=== PATIENT | male | born 1950 | race Caucasian/White ===

== ENCOUNTER 2022-07-25 08:42 | Observation (INO) | payer MEDICARE ==
[2022-07-19 15:40] LABS: BASOPHILS % (AUTO) 0.3 % (0.0-5.0); HEMATOCRIT 41.3 % (42-54); LYMPHOCYTES % (AUTO) 21.4 % (21.0-51.0); MEAN CORPUSCULAR HEMOGLOBIN 32.6 pg (27.0-33.0); MEAN CORPUSCULAR HGB CONC 33.7 g/dL (32.0-36.0); MEAN CORPUSCULAR VOLUME 96.7 fL (79-99); MONOCYTES % (AUTO) 13.4 % (3.0-13.0); NEUTROPHILS % (AUTO) 61.6 % (40.0-77.0); PLATELET COUNT (AUTO) 110 K/uL (130-400); RED BLOOD CELL COUNT(AUTO) 4.27 MIL/uL (4.50-6.20); RED CELL DISTRIBUTION WIDTH 12.7 % (11.0-15.5)
[2022-07-19 15:49] LABS: CREATININE 0.8 mg/dL (0.5-1.5); POTASSIUM 3.7 mmol/L (3.5-5.1)
[2022-07-19 15:52] LABS: INR 1.03 (0.85-1.15); PROTHROMBIN TIME 11.2 SEC (9.6-11.6)
[2022-07-19 15:54] LABS: PARTIAL THROMBOPLASTIN TIME 29.3 SEC (26.3-35.5)
[2022-07-19 16:10] LABS: BASOPHILS % (MANUAL) 1 % (0-2); EOSINOPHILS % (MANUAL) 1 % (1-6); LYMPHOCYTES % (MANUAL) 19 % (22-44); MAN.DIFF COMMENT-IMPRESSION MANUAL DIFFERENTIAL; MONOCYTES % (MANUAL) 6 % (2-9); REACTIVE LYMPHOCYTES 5 % (0-0); SEGMENTED NEUTROPHILS % 68 % (40-70)
[2022-07-24 11:58] VITALS: BP 140/73
[~2022-07-25] VITALS: Ht 182.9 cm; Wt 83.5 kg
[2022-07-25] VITALS (24 sets, daily range): BP systolic 132–158; BP diastolic 62–89
[2022-07-25] MEDS: CEFAZOLIN SODIUM 1 GM VIAL IVP SCH ×3 (06:00→21:14)
[~2022-07-25 08:42] MED LIST: ALBU90AE2 IH; CYCL-309 PO; FLUO20CA36 PO; FLUT1BLS11 IH; HYDR12.54 PO; LACTATED RINGERS 1000ML 1,000 ML IV SCH; MV,M1TAB4 PO; OMEP20TA20 PO; POTA-202 PO; TAMS-1 PO; TERA10CA4 PO; TRAM50TA4 PO; TRANEXAMIC ACID 1000MG/10ML IJ SCH
[2022-07-25] MEDS ORDERED: DIPH-706 PO (09:41)
[2022-07-25] MEDS ORDERED: HYLAND LEG CRAMPS (09:41)
[2022-07-25] MEDS ORDERED: MONT-39 PO (09:41)
[2022-07-25] MEDS ORDERED: ROPIVACAINE 0.5% 5MG/ML 30ML IJ ONE (12:51)
[2022-07-25] MEDS ORDERED: TRANEXAMIC ACID 1000MG/10ML ONE (13:12)
[2022-07-25] MEDS ORDERED: MORPHINE 4 MG SYG IVP PRN (14:30)
[2022-07-25] MEDS ORDERED: ONDANSETRON 4MG INJ IVP PRN (14:30)
[2022-07-25] MEDS ORDERED: LIDOCAINE HCL-MPF 1% 2ML VIAL IV PRN (14:30)
[2022-07-25] MEDS ORDERED: POTASSIUM CHLORIDE 10% ELIXIR 20 MEQ/15 ML UDCUP PO PRN (14:30)
[2022-07-25] MEDS ORDERED: POTASSIUM CHLORIDE 20MEQ/100ML 100 ML IV PRN (14:30)
[2022-07-25] MEDS ORDERED: CYCLOBENZAPRINE HCL 10 MG TABLET PO PRN (14:30)
[2022-07-25] MEDS ORDERED: KCL 20 MEQ ERTAB PO PRN (14:30)
[2022-07-25] MEDS ORDERED: ALBUTEROL INHALER 90MCG/INH IH PRN (14:30)
[2022-07-25] MEDS: ACETAMINOPHEN 500 MG TABLET PO SCH ×2 (14:30→21:13)
[2022-07-25] MEDS ORDERED: 0.9%NACL 1000ML 1,000 ML IV SCH (14:30)
[2022-07-25] MEDS ORDERED: MIDAZOLAM HCL 1 MG/ML 2ML VIAL ONE (14:39)
[2022-07-25] MEDS ORDERED: FENTANYL CITRATE PF 50 MCG/1 ML 2ML VIAL ONE ×2 (14:41→17:40)
[2022-07-25] MEDS ORDERED: ONDANSETRON 4MG INJ ONE (14:46)
[2022-07-25] MEDS ORDERED: PROPOFOL 10 MG/ML 20ML VIAL IV ONE ×2 (14:48→15:29)
[2022-07-25] MEDS ORDERED: ROCURONIUM 10MG/1ML SYR 10 MG/ML ML ONE ×2 (14:48→15:59)
[2022-07-25] MEDS ORDERED: DEXAMETHASONE SOD PHOSPHATE 10MG/ML 1ML VIAL ONE (15:00)
[2022-07-25] MEDS ORDERED: EPHEDRINE SULFATE 50 MG/ML AMPULE ONE (15:57)
[2022-07-25] MEDS ORDERED: GLYCOPYRROLATE 1 MG/5 ML SYRINGE ONE (17:23)
[2022-07-25] MEDS ORDERED: NEOSTIGMINE 5MG/5ML SYR IV ONE (17:23)
[2022-07-25] MEDS ORDERED: MEPERIDINE-PF 25 MG/ML SYG ONE (18:04)
[2022-07-25] MEDS ORDERED: FLUOXETINE HCL 20 MG CAPSULE PO SCH (21:00)
[2022-07-25] MEDS: FLUTICASONE/VILANTEROL 1 EACH AER.POW.BA IH SCH (21:00)
[2022-07-25] MEDS ORDERED: PANTOPRAZOLE 40 MG TAB DR PO SCH (21:00)
[2022-07-25] MEDS ORDERED: TAMSULOSIN HCL 0.4 MG CAP.ER.24H PO SCH (21:00)
[2022-07-25] MEDS ORDERED: TERAZOSIN 5MG CAP PO SCH (21:00)
[2022-07-25] MEDS ORDERED: MONTELUKAST SODIUM 10 MG TAB PO SCH (21:00)
[2022-07-25] MEDS: TRAMADOL HCL 50 MG TABLET PO SCH (21:11)
[2022-07-25] MEDS: ASPIRIN 81 MG EC TAB PO SCH (21:12)
[2022-07-25] MEDS: FAMOTIDINE 20MG TAB PO SCH (22:15)
[2022-07-25] MEDS: OXYCODONE HCL 5 MG TAB PO PRN (23:30)
[2022-07-26] MEDS: HYDROCODONE/ACETAMINOPHEN 5/325 MG TAB PO PRN ×2 (02:30→15:40)
[2022-07-26 04:47] VITALS: BP 146/78
[2022-07-26 05:01] LABS: HEMATOCRIT 41.6 % (42-54); MEAN CORPUSCULAR HEMOGLOBIN 32.1 pg (27.0-33.0); MEAN CORPUSCULAR HGB CONC 32.2 g/dL (32.0-36.0); MEAN CORPUSCULAR VOLUME 99.8 fL (79-99); RED BLOOD CELL COUNT(AUTO) 4.17 MIL/uL (4.50-6.20); RED CELL DISTRIBUTION WIDTH 12.5 % (11.0-15.5); WHITE BLOOD COUNT (AUTO) 8.1 K/uL (4.8-10.8)
[2022-07-26 05:13] LABS: CREATININE 0.8 mg/dL (0.5-1.5)
[2022-07-26] MEDS ORDERED: CEFAZOLIN SODIUM 1 GM VIAL ONE (05:29)
[2022-07-26] MEDS: CEFAZOLIN SODIUM 1 GM VIAL IVP SCH (05:46)
[2022-07-26] MEDS: TRAMADOL HCL 50 MG TABLET PO SCH ×4 (05:47→17:28)
[2022-07-26] MEDS: ACETAMINOPHEN 500 MG TABLET PO SCH ×2 (05:47→14:30)
[2022-07-26 08:00] VITALS: BP 118/63
[2022-07-26] MEDS: OXYCODONE HCL 5 MG TAB PO PRN (08:34)
[2022-07-26] MEDS: FAMOTIDINE 20MG TAB PO SCH (08:35)
[2022-07-26] MEDS: FLUTICASONE/VILANTEROL 1 EACH AER.POW.BA IH SCH (08:35)
[2022-07-26] MEDS: ASPIRIN 81 MG EC TAB PO SCH (08:35)
[2022-07-26] MEDS ORDERED: KCL 20 MEQ ERTAB PO SCH (09:00)
[2022-07-26] MEDS ORDERED: HYDROCHLOROTHIAZIDE 25 MG TABLET PO SCH (09:00)
[2022-07-26] MEDS ORDERED: POLYETHYLENE GLYCOL 3350 17 GM POWD.PACK PO SCH (09:00)
[2022-07-26 12:00] VITALS: BP 102/56
[2022-07-26 16:52] VITALS: BP 102/58
[2022-07-28] MEDS ORDERED: BISACODYL 10 MG SUPP.RECT RC PRN (14:30)
== END 2022-07-26 19:30 | disposition home or self-care (01) ==
LOC: DAH 08:42 → DAHIP 08:43 → DAH 08:43 → 4CH 19:15
PROVIDERS: ADMIT Orthopaedic Surgery; ATTEND Orthopaedic Surgery
DX: M19.011 Primary osteoarthritis, right shoulder (principal); Z20.822 Contact with and (suspected) exposure to COVID-19; M75.101 Unspecified rotator cuff tear or rupture of right shoulder, not specified as traumatic; M24.511 Contracture, right shoulder; I10 Essential (primary) hypertension; J45.909 Unspecified asthma, uncomplicated; Z79.899 Other long term (current) drug therapy
CPT/HCPCS: 80048 ×2; 85025; 85610; 85730; 87426; 36415 ×2; 23472; 96374; 96375 ×2; 76942; 64415; 73030; 96376; 85027; 97161; 97530 ×2; A6260; G0378 ×24; A4663; A4215 ×2; A4565; C1713 ×2; A4649 ×6; C1776; J7120; J3010 ×2; J0690 ×3; J3490 ×3; J1100; J2710; J2250; J2704 ×2; J2405 ×2; J2175; J2795; A6223; A4930; A4223; A4222; A4221; J2270